=== PATIENT | female | born 1970 | race Two or more races ===

== ENCOUNTER 2020-08-16 08:13 | Day surgery (SDC) | payer OTHER ==
[~2020-08-16] VITALS: Ht 152.4 cm; Wt 86.0 kg
[~2020-08-16 08:13] MED LIST: CEFAZOLIN 1,000 MG ONE; DEXAMETHASONE 4 MG/ML, 1ML ONE; FENTANYL PF 250 MCG/5ML ONE; MIDAZOLAM 1 MG/ML, 2ML ONE; ONDANSETRON 2MG/ML, 2ML ONE; PROPOFOL 10 MG/ML, 20ML ONE; ROPIvacaine/PF 0.2%, 20 ML ONE
[2020-08-16 08:40] VITALS: BP 151/85
[2020-08-16] MEDS ORDERED: LACTATED RINGERS 1,000 ML IV SCH (08:45)
[2020-08-16] MEDS ORDERED: CHLORHEXIDINE 15 ML UDC MM STA (08:45)
[2020-08-16 09:09] LABS: HCG UR SG 1.006 (1.003-1.030)
[2020-08-16] MEDS ORDERED: LABETALOL 5MG/ML, 20ML IV PRN (11:00)
[2020-08-16] MEDS ORDERED: PROMETHAZINE 25 MG/ML, 1ML IVPush PRN (11:00)
[2020-08-16] MEDS ORDERED: morphine SULFATE 10 MG/ML, 1ML IVPush PRN (11:00)
[2020-08-16] MEDS ORDERED: OXYcodone 5 MG/5 ML ORAL.SOL UDC PO PRN (11:00)
[2020-08-16] MEDS ORDERED: ACETAMINOPHEN 325 MG TABLET PO PRN (11:00)
[2020-08-16] MEDS ORDERED: HYDROmorphone 1 MG/ML, 1ML INJ IVPush PRN (11:00)
[2020-08-16] MEDS ORDERED: HALOPERIDOL 5 MG/ML IV PRN (11:00)
[2020-08-16] MEDS ORDERED: MEPERIDINE/PF 25MG/0.5ML IVPush PRN (11:00)
[2020-08-16] MEDS ORDERED: hydrALAzine 20 MG/ML, 1ML IV PRN (11:00)
[2020-08-16] MEDS ORDERED: OXYcodone 5 MG/5 ML ORAL.SOL UDC ONE (13:28)
[2020-08-16] MEDS ORDERED: FENTANYL PF 100 MCG/2ML ONE (13:28)
[2020-08-16] MEDS: FENTANYL PF 100 MCG/2ML IV PRN ×2 (13:30→13:38)
[2020-08-16] MEDS ORDERED: HYDROmorphone 1 MG/ML, 1ML INJ ONE (13:51)
== END 2020-08-16 16:00 | disposition home or self-care (01) ==
LOC: OUT 08:13
PROVIDERS: ATTEND Orthopaedic Surgery
DX: S93.321A Subluxation of tarsometatarsal joint of right foot, initial encounter (principal); Z20.828 Contact with and (suspected) exposure to other viral communicable diseases; M19.071 Primary osteoarthritis, right ankle and foot; G89.18 Other acute postprocedural pain; Z88.8 Allergy status to other drugs, medicaments and biological substances; W01.0XXA Fall on same level from slipping, tripping and stumbling without subsequent striking against object, initial encounter; Y93.89 Activity, other specified; Y92.69 Other specified industrial and construction area as the place of occurrence of the external cause; Y99.8 Other external cause status
CPT/HCPCS: 28615; 28730; 64445; 64447; 73620; 76000; 81025; 87635; C1713; J0690; J1100; J1170; J2250; J2405; J2704; J2795; J3010; J7120